=== PATIENT | female | born 1980 | race African-American/Black ===

== ENCOUNTER 2020-09-14 15:34 | Observation (INO) ==
[2020-09-14 17:32] LABS: Basophils # 0.1 10*3/uL (0.0-0.2); Basophils % 0.7 % (0.0-0.8); Eosinophils # 0.2 10*3/uL (0.0-0.87); Eosinophils % 2.6 % (0.00-10.9); Hematocrit 40.2 VOL% (35.7-47.0); Hemoglobin 11.9 GM/DL (12.0-16.0); Immature Granulocytes % 0.2 %; Immature Granulocytes Absolute 0.02 #; Lymphocytes # 3.9 10*3/uL (1.4-4.0); Lymphocytes % 45.3 % (21.3-54.2); Mean Corpuscular HGB Conc 29.6 GM/DL (32-36); Mean Corpuscular Volume 83.8 FL (87-102); Mean Platelet Volume 12.3 FL (9.6-12.0); Monocytes % 7.4 % (1.7-12.7); Neutrophils % 43.8 % (38.7-73.9); Platelet Count 251 T/CUMM (130-400); Red Cell Distribution Width 14.6 % (9.3-17.3); White Blood Count 8.5 T/CUMM (4-12)
[2020-09-14 18:01] LABS: Alanine Aminotransferase 24 U/L (13-56); Albumin 3.6 G/DL (3.4-5.0); Alkaline Phosphatase 102 U/L (45-117); Aspartate Amino Transferase 17 U/L (0-37); Bilirubin,Total < 0.39 MG/DL (0.2-1.0); Blood Urea Nitrogen 11 MG/DL (7-18); Calcium 8.7 MG/DL (8.5-10.1); Carbon Dioxide 29 MMOL/L (21-32); Estimated Glom Filtration Rate 136 ML/MIN; Glucose 92 MG/DL (74-106); Osmolality,Calculated 281.1 MOS/KG (273-304); Potassium 3.6 MMOL/L (3.5-5.1); Sodium 142 MMOL/L (136-145); Total Protein 7.2 G/DL (6.4-8.3)
[2020-09-14] MEDS ORDERED: MORPHINE 4 MG/1 ML VIAL IV PRN (20:08)
[2020-09-14] MEDS ORDERED: ONDANSETRON 4 MG/2 ML VIAL IV PRN (20:08)
[2020-09-14] MEDS ORDERED: ACETAMINOPHEN 325 MG TABLET PO PRN (20:08)
[2020-09-14] MEDS ORDERED: hydrALAZINE 20 MG/1 ML VIAL IV PRN (20:27)
[2020-09-14 20:50] LABS: Troponin I < 0.015 NG/ML (0.00-0.045)
[2020-09-14] MEDS ORDERED: ENOXAPARIN 40 MG/0.4 ML SYRINGE SUBCUT SCH (21:00)
[2020-09-15] MEDS: NITROGLYCERIN 2% OINT 1 INCH/GM PACK TOP SCH ×5 (00:11→23:20)
[2020-09-15] MEDS: SODIUM CHLORIDE 0.9% 1,000 ML IV SCH ×2 (00:11→18:11)
[2020-09-15] MEDS: DOCUSATE SODIUM 100 MG CAPSULE PO SCH ×3 (00:11→21:28)
[2020-09-15 05:06] LABS: Basophils # 0.1 10*3/uL (0.0-0.2); Basophils % 0.5 % (0.0-0.8); Eosinophils # 0.1 10*3/uL (0.0-0.87); Eosinophils % 1.4 % (0.00-10.9); Hematocrit 38.6 VOL% (35.7-47.0); Hemoglobin 11.8 GM/DL (12.0-16.0); Immature Granulocytes % 0.1 %; Immature Granulocytes Absolute 0.01 #; Lymphocytes # 3.8 10*3/uL (1.4-4.0); Lymphocytes % 39.2 % (21.3-54.2); Mean Corpuscular HGB Conc 30.6 GM/DL (32-36); Mean Platelet Volume 12.4 FL (9.6-12.0); Monocytes % 6.6 % (1.7-12.7); Neutrophils % 52.2 % (38.7-73.9); Platelet Count 238 T/CUMM (130-400); Red Blood Count 4.71 MC/CUMM (3.8-5.5); Red Cell Distribution Width 14.5 % (9.3-17.3); White Blood Count 9.8 T/CUMM (4-12)
[2020-09-15 05:36] LABS: Albumin 2.9 G/DL (3.4-5.0); Bilirubin,Total 0.5 MG/DL (0.2-1.0); Calcium 8.8 MG/DL (8.5-10.1); Osmolality,Calculated 278.5 MOS/KG (273-304); Potassium 3.8 MMOL/L (3.5-5.1); Risk Ratio 3.57; VLDL CHOLESTEROL 13.2 MG/DL
[2020-09-15] MEDS: ASPIRIN EC 81 MG TABLET PO SCH (09:56)
[2020-09-15] MEDS: PANTOPRAZOLE 40 MG TABLET PO SCH (09:57)
[2020-09-16] MEDS: NITROGLYCERIN 2% OINT 1 INCH/GM PACK TOP SCH ×2 (05:42→13:20)
[2020-09-16 05:45] LABS: Basophils # 0.1 10*3/uL (0.0-0.2); Basophils % 0.8 % (0.0-0.8); Eosinophils # 0.2 10*3/uL (0.0-0.87); Eosinophils % 2.7 % (0.00-10.9); Hematocrit 38.6 VOL% (35.7-47.0); Hemoglobin 11.8 GM/DL (12.0-16.0); Immature Granulocytes % 0.4 %; Immature Granulocytes Absolute 0.03 #; Lymphocytes # 3.1 10*3/uL (1.4-4.0); Mean Corpuscular HGB Conc 30.6 GM/DL (32-36); Mean Platelet Volume 12.1 FL (9.6-12.0); Monocytes % 7.6 % (1.7-12.7); Neutrophils % 46.5 % (38.7-73.9); Platelet Count 225 T/CUMM (130-400); Red Blood Count 4.71 MC/CUMM (3.8-5.5); Red Cell Distribution Width 14.6 % (9.3-17.3); White Blood Count 7.3 T/CUMM (4-12)
[2020-09-16 06:09] LABS: Calcium 8.5 MG/DL (8.5-10.1); Osmolality,Calculated 276.5 MOS/KG (273-304); Potassium 3.6 MMOL/L (3.5-5.1)
[2020-09-16] MEDS ORDERED: amLODIPine 5 MG TABLET PO SCH (09:00)
[2020-09-16] MEDS: ASPIRIN EC 81 MG TABLET PO SCH (09:24)
[2020-09-16] MEDS: DOCUSATE SODIUM 100 MG CAPSULE PO SCH (09:25)
[2020-09-16] MEDS: PANTOPRAZOLE 40 MG TABLET PO SCH (09:25)
[2020-09-16 11:21] VITALS: BP 174/95
[2020-09-16] MEDS: SODIUM CHLORIDE 0.9% 1,000 ML IV SCH (13:20)
== END 2020-09-16 13:22 | disposition home or self-care (01) ==
LOC: N.EDINP 15:34 → N.ED 15:34 → N.TELEN 20:34
PROVIDERS: ADMIT Family Medicine; ATTEND Family Medicine